=== PATIENT | female | born 1995 | race Caucasian/White ===

== ENCOUNTER → 2016-09-25 | Outpatient (CLI) | payer OTHER ==
[2015-07-28 09:54] VITALS: BP 127/75
--- NOTE | 2016-09-25 10:57 | RAD ---
Right ankle, three views Indication: Right ankle pain x2 weeks. Comparison: None Findings: No cortical lucency or malalignment of the right ankle identified. The joint spaces are no rmally maintained. No significant soft tissue abnormality. Impression: Negative exam. Reported By:
== END ==
LOC: RAD 10:16
PROVIDERS: ATTEND Obstetrics & Gynecology Obstetrics
DX: M25.571 Pain in right ankle and joints of right foot (principal)
CPT/HCPCS: 73610

== ENCOUNTER 2017-04-14 08:23 | Emergency (ER) | payer SELFPAY ==
[2017-04-14 08:27] VITALS: BP 124/80; BMI 30.1
[2017-04-14] MEDS ORDERED: ZOFRAN INJ 4 MG VIAL IVP ONE (09:04)
[2017-04-14] MEDS ORDERED: TORADOL 60 MG VIAL IM ONE (09:04)
--- NOTE | 2017-04-14 09:05 | DR.HEADACH ---
HPI - Time Seen Time seen: 08:45 - Primary Care Physician Primary Care Physician: SEGUNDO - HPI Comment HPI Comment: PATIENT IS HAVING SEVERE HEADACHE WITH NAUSEA AND PHOTOPHOBIA FOR PAST 3 DAYS. WORSE HEADACHE EVER. NON PRESCRIPTION MEDS NOT HELPING HEADACHE. NO URI OR SINUS SYMTOMS. - Complaint/Symptoms Chief Complaint Doctors Comments: HEADACHE TIMES 3 DAYS. Chief Complaint:: PT. C/O HEADACHE SINCE FRIDAY WITH N/V. PT. HAS TAKEN OTC MEDICATIONS WITH NO RELIEF. Pertinent History: Headache, Nausea/Vomitting - Reviewed Nurses Notes Reviewed: Yes - Source History Provided: Patient - Mode of Arrival Mode of Arrival: Ambulatory - Timing Onset of Chief Complaint: 04/11/17 - Duration Since Onset: Constant Duration: Days - Location Headache Location: Generalized - Quality Quality: Throbbing - Severity Headache Severity: Severe - Context Headache Onset Circumstances: Spontaneous History of: None Prior Work Up: None - Modifying Factors Improves With: Nothing Worsens: Light - Associated Signs and Symptoms Associated Symptoms: Nausea, Photophobia Aura: Visual (PHOTOPHOBIA) PMH - PMH Past Medical History: No Past Surgical History: No Surgical History: No History - Family History History of Family Medical Conditions: Yes Family Medical History: Diabetes Mellitus, Cancer - Social History Does patient currently use any type of tobacco product: No Have you used tobacco products in the last 12 months: No Type of Tobacco Use: None Does any household member use tobacco: No Alcohol Use: None Do you use any recreational Drugs:: No Lives With: Spouse Lives Where: Home - infectious screening In the last 2 months have you had wt loss of >10#?: NO Have you had fever, night sweats or hemotysis?: No Have you traveled outside the country in the last 6 months?: No Isolation: Standard ROS - Review of Systems Constitutional: No Symptoms Reported Eyes: Other (PHOTOPHOBIA). negative: Eye Pain, Discharge ENTM: negative: Ear Pain, Nose Discharge, Nose Congestion, Throat Pain Respiratoy: negative: Productive Cough, Non-Productive Cough, Short of Breath, Wheezing, Hemoptysis Cardiovascular: negative: Chest Pain Gastrointestinal/Abdominal: Nausea Genitourinary: No Symptoms Reported Neurological: Headache Musculoskeletal: No Symptoms Reported Integumentary: No Symptoms Reported Hematologic/Lymphatic: No Symptoms Reported Endocrine: No Symptoms Reported All Other Systems: Reviewed and Negative PE - Vital Signs Vitals: Temperature 97.2 F Pulse Rate 68 Respiratory Rate 17 Blood Pressure 124/80 O2 Sat by Pulse Oximetry 99 - General Limitations: No Limitations General Appearance: Alert - Head Head Exam: Normal Inspection - Eyes Eye exam: Normal Appearance Eyelids: Normal Inspection: Bilateral Pupils: Regular, Round: Bilateral, Reactive: Bilateral - ENT ENT Exam: Normal External Ear Exam External Ear Exam: Normal External Inspection TM/Canal Exam: Bilateral Normal Nose Exam: Normal Nose Exam Mouth Exam: Normal Inspection Teeth Exam: Normal Inspection Throat Exam: Normal Inspection - Neck Neck Exam: Trachea Midline. negative: Tenderness, Meningismus, Lymphadenopathy - Chest Chest Inspection: Symmetric Chest Wall Rise - Respiratory Respiratory Exam: Normal Lung Sounds Bilat Respiratory Exam: Bilateral Clear to Auscultation - Cardiovascular Cardiovascular Exam: Regular Rate, Normal Rhythm, Normal Heart Sounds - Abdominal Exam Abdominal Exam: Normal Bowel Sounds, Soft. negative: Tenderness - Extremities Extremities Exam: Normal Inspection - Back Back Exam: Normal Inspection - Neurologic Neurological Exam: Alert, Oriented X3, CN II-XII Intact, Normal Gait, Reflexes Normal. negative: Motor Sensory Deficit - Psychiatric Psychiatric Exam: Normal Affect, Normal Mood - Skin Skin Exam: Normal Color MDM - Differential Diagnosis Differential Diagnosis: Considerations may include:: Migraine, CVA, Sinusitis Course - Treatment Treatment: SEE ORDERS. IM ZOFRAN AND TORADOL IN ED, HEADACHE IMPROVED - Reevaluation 1st: Improved - Education/Counseling Education/Counseling: Patient, Education Educated On: Treatment, Diagnosis, Needs for Follow Up ROR - XRAY XRAY Interpreted by: Radiologist XRAY Findings: REPORT DISCUSS WITH PATIENT. - Diagnosis Discharge Problem: Headache Qualifiers: Headache type: unspecified Headache chronicity pattern: acute headache Intractability: intractable Qualified Code(s): R51 - Headache - Discharge Plan Disposition: 01 HOME, SELF-CARE Condition: Stable Prescriptions: [id number] [Fioricet Tab] 1 tab PO Q8H PRN #20 tab PRN Reason: Migraine Headache Ibuprofen [MOTRIN TAB 600 MG *] 600 mg PO TID PRN #30 tab PRN Reason: Pain/Inflammation Ondansetron HCl [Zofran Tab 4 mg] 4 mg PO Q8H PRN #12 tab PRN Reason: Nausea/Vomiting - Follow ups/Referrals Follow ups/Referrals: RONEN RAYMOND [Primary Care Provider] - 3 days - Instructions Instructions: Headache and Arthritis Additional Instructions: RETURN TO ED IF WORSE.
[2017-04-14] MEDS ORDERED: ZOFRAN INJ 4 MG VIAL IM ONE (09:10)
[2017-04-14] MEDS ORDERED: ZOFRAN INJ 4 MG VIAL ONE (09:19)
[2017-04-14] MEDS ORDERED: TORADOL 60 MG VIAL ONE (09:20)
--- NOTE | 2017-04-14 09:41 | CT ---
HISTORY: Headache Study: CT brain without contrast Comparison: 06/15/2013 Technique: Multiple axial images of the brain were obtained from the skull base to the vertex without administra tion of IV contrast. Coronal and sagittal reformats were performed. Dose reduction procedures were us ed with mA/kv adjusted for body size. Findings: No acute intraparenchymal hemorrhage or mass can be identified. No extra-axial fluid collections are seen. No alteration in the attenuation of the brain parenchyma can be identified to suggest acute o r subacute ischemic change. The ventricular system is symmetric and nondilated. The extracranial st ructures are grossly unremarkable. The calvarium is intact. IMPRESSION: 1. No significant intracranial abnormality identified Reported By:
== END 2017-04-14 09:56 | disposition home or self-care (01) ==
LOC: ER 08:32
DX: R51 Headache (principal)
CPT/HCPCS: 36600; 70450; 96372; 99282; J1885; J2405

== ENCOUNTER 2017-07-13 16:54 | Emergency (ER) | payer SELFPAY ==
[2017-07-13 17:02] VITALS: BMI 30.9
--- NOTE | 2017-07-13 17:50 | DR.GENAD ---
HPI - PCP Primary Care Physician: nfd - Complaint/Symptoms Chief Complaint Doctors Comments: Patient states that she has been having left shoulder pain for several weeks. She admits to neck pain when younger now the pain has radiated to the left shoulder, She reports a history of migraine Chief Complaint:: patient stated she has been having shoulder pain for several years but the last 2 weeks. she stated she has also been having a headache - Source History Provided: Patient - Mode of Arrival Mode of Arrival: Ambulatory - Timing Onset of Chief Complaint: 06/29/17 PMH - PMH Past Medical History: No Past Surgical History: No Surgical History: No History - Family History History of Family Medical Conditions: Yes Family Medical History: Diabetes Mellitus, Cancer - Social History Does patient currently use any type of tobacco product: No Have you used tobacco products in the last 12 months: No Type of Tobacco Use: None Does any household member use tobacco: No Alcohol Use: None Do you use any recreational Drugs:: No Lives With: Family Lives Where: Home - infectious screening In the last 2 months have you had wt loss of >10#?: NO Have you had fever, night sweats or hemotysis?: No Have you traveled outside the country in the last 6 months?: No Isolation: Standard ROS - Review of Systems Eyes: No Symptoms Reported ENTM: No Symptoms Reported Respiratoy: No Symptoms Reported Cardiovascular: No Symptoms Reported Gastrointestinal/Abdominal: No Symptoms Reported Genitourinary: No Symptoms Reported Neurological: No Symptoms Reported Musculoskeletal: No Symptoms Reported Integumentary: No Symptoms Reported Hematologic/Lymphatic: No Symptoms Reported Endocrine: No Symptoms Reported Psychiatric: No Symptoms Reported All Other Systems: Reviewed and Negative PE - Vital Signs Vitals: Temperature 98.7 F Pulse Rate 107 Respiratory Rate 16 Blood Pressure 141/87 O2 Sat by Pulse Oximetry 100 - General Limitations: No Limitations General Appearance: Alert, In No Apparent Distress - Head Head Exam: Normal Inspection, Atraumatic - Eyes Eye exam: Normal Appearance, PERRL, EOMI - ENT ENT Exam: Normal Exam External Ear Exam: Normal External Inspection TM/Canal Exam: Bilateral Normal Nose Exam: Normal Nose Exam Mouth Exam: Normal Inspection Throat Exam: Normal Inspection - Neck Neck Exam: Normal Inspection, Full ROM - Chest Chest Inspection: Normal Inspection - Respiratory Respiratory Exam: Normal Lung Sounds Bilat Respiratory Exam: Bilateral Clear to Auscultation - Cardiovascular Cardiovascular Exam: Regular Rate, Normal Rhythm - Abdominal Exam Abdominal Exam: Normal Inspection, Normal Bowel Sounds Abdominal Tenderness: negative: RUQ, RLQ, LUQ, LLQ, Epigastrium, Suprapubic, Diffuse, Mild, Moderate, Severe, Other - Extremities Extremities Exam: Normal Inspection, Full ROM - Back Back Exam: Normal Inspection, Full ROM - Neurologic Neurological Exam: Alert, Oriented X3, CN II-XII Intact - Psychiatric Psychiatric Exam: Normal Affect, Normal Mood, Depressed - Skin Skin Exam: Warm, Dry, Intact Course - Reevaluation 1st: Unchanged ROR - XRAY XRAY Interpreted by: Radiologist (C spine: No abnormality; Shoulder: negative) - Diagnosis Discharge Problem: Neck pain Shoulder pain Qualifiers: Chronicity: unspecified Laterality: left Qualified Code(s): M25.512 - Pain in left shoulder Headache Qualifiers: Headache type: unspecified Headache chronicity pattern: chronic headache Intractability: not intractable Qualified Code(s): R51 - Headache - Discharge Plan Condition: Stable - Follow ups/Referrals Follow ups/Referrals: NFD,None [Primary Care Provider] - 3 days - Instructions
--- NOTE | 2017-07-13 18:23 | RAD ---
Examination: Cervical spine, three views History: Neck and shoulder pain AP, lateral and open-mouth odontoid views were obtained. The available AP view is nondiagnostic. The open-mouth view demonstrates normal C1-2 anatomy. There is normal alignment of C1-C7. Disc spaces are preserved. No fracture identified. C7-T1 is not demonstrated. Impression: No acute process identified. Incomplete lateral evaluation of the cervicothoracic junctio n. Reported By:
[2017-07-13] MEDS ORDERED: TORADOL 60 MG VIAL IM ONE (19:11)
[2017-07-13] MEDS ORDERED: TORADOL 60 MG VIAL ONE (19:13)
--- NOTE | 2017-07-13 19:35 | RAD ---
CLINICAL HISTORY: Pain COMPARISON: None FINDINGS/IMPRESSION: No evidence of acute fracture or dislocation. Soft tissues are grossly unremarkable. Reported By:
[2017-07-13 19:59] VITALS: BP 111/73
== END 2017-07-13 19:59 | disposition home or self-care (01) ==
LOC: ER 17:11
DX: M25.512 Pain in left shoulder (principal); M54.2 Cervicalgia; R51 Headache
CPT/HCPCS: 72040; 73030; 96372; 99282; 99283; J1885

== ENCOUNTER 2019-06-02 16:48 | Inpatient (IN) ==
[2019-06-02] MEDS ORDERED: NS 1000 ML 1,000 ML IV ONE ×2 (17:26→18:10)
[2019-06-02] MEDS ORDERED: TORADOL 30 MG VIAL IVP ONE (17:28)
[2019-06-02] MEDS ORDERED: ZOFRAN INJ 4 MG VIAL IVP ONE ×2 (17:28→18:05)
[2019-06-02] MEDS ORDERED: ZOFRAN INJ 4 MG VIAL ONE ×2 (17:39→18:16)
[2019-06-02] MEDS ORDERED: TORADOL 30 MG VIAL ONE (17:39)
[2019-06-02] MEDS ORDERED: NS 1000 ML 1,000 ML ONE ×2 (17:39→19:01)
--- NOTE | 2019-06-02 17:50 | ED.ABDFE ---
HPI Time Seen Time Seen by Provider: 06/02/19 17:26 PCP Primary Care Physician: HAMZAH HPI Comment HPI Comment: Pt has had abd pain, N, and V since night the night before last. About 40 hours. Unable to keep hardly even clear liquids down. No diarrhea. Fe karma 100.6 Complaint Doctors Chief Complaint Comments: no prior hx of such. no exposures. has not had similar sx's. Chief Complaint:: PT. C/O NAUSEA/VOMITING AND ABDOMINAL PAIN X 2 DAYS. PT. UNABLE TO KEEP ANYTHING DOWN BUT ICE CHIPS. PT. SAYS HER ABDOMEN IS "ON FIRE." Self Treatment fo Chief Complaint: none Reviewed Nurses Notes Review: Yes Source History Provided: Patient and Significant Other Mode of arrival Mode of Arrival: Ambulatory Timing Onset of Chief Complaint: 05/31/19 Came on: Gradually and At Night Duration Since Onset: Since Onset Duration: Hours (40) Location Location: Epigastric Severity Severity: Severe Quality Quality: Aching and Burning Modifying factors Worsening Factors: Nothing Improving Factors: Nothing Associated signs and symptoms Associated Signs and Symptoms: Nausea and Vomiting; denies Diarrhea, Vaginal Bleeding, Vaginal Discharge, Dysuria and Urgency Other history Other History: pt says she is not . had a normal period a week ago. PMH PMH Past Medical History: No Past Medical History: Anxiety; denies Diabetes and GERD Past Medical History Comment: has had one with twins but had a spontaneous . Past Surgical History: No Surgical History: No History Family History History of Family Medical Conditions: Yes Family Medical History: Diabetes Mellitus and Cancer Social History Does patient currently use any type of tobacco product: Yes Have you used tobacco products in the last 12 months: Yes Type of Tobacco Use: Cigarettes Does any household member use tobacco: Yes Alcohol Use: None Do you use any recreational Drugs:: No Lives With: Spouse Lives Where: Home infectious screening In the last 2 months have you had wt loss of >10#?: NO Have you had fever, night sweats or hemotysis?: Yes Have you traveled outside the country in the last 6 months?: No Isolation: Standard ROS Review of Systems Constitutional: Chills, Fever and Loss of Appetite Eyes: No Symptoms Reported ENTM: No Symptoms Reported Respiratoy: No Symptoms Reported; negative Productive Cough and Short of Breath Cardiovascular: No Symptoms Reported Gastrointestinal/Abdominal: See HPI Genitourinary: No Symptoms Reported; negative Dysuria Neurological: No Symptoms Reported Integumentary: negative Rash Endocrine: Decreased Appetite Psychiatric: No Symptoms Reported All Other Systems: Reviewed and Negative PE Vital Signs Vitals: Temperature 98.3 F Pulse Rate [Apical] 94 Pulse Rate 140 Respiratory Rate 22 Blood Pressure [Right Arm] 110/68 Blood Pressure 116/80 O2 Sat by Pulse Oximetry 98 General Limitations: No Limitations General Appearance: Alert, Anxious and Other (very uncomfortable, nauseated, in pain) Head Head Exam: Normal Inspection Eyes Eye exam: negative Scleral Icterus ENT ENT Exam: Mucous Membranes Dry Neck Neck Exam: Full ROM Respiratory Respiratory Exam: Normal Lung Sounds Bilat Respiratory Exam: Bilateral: Clear to Auscultation Cardiovascular Cardiovascular Exam: Normal Rhythm and Tachycardia; negative Systolic Murmur Abdominal Exam Abdominal Exam: Soft, Tenderness, Guarding and Other (mostly tender epigastrium and RUQ. Lower abd not tender.); negative Rigidity and Mass Abdominal Tenderness: RUQ and Epigastrium Rectal Rectal Exam: Deferred Back Back Exam: Normal Inspection; negative (R) CVA Tenderness and (L) CVA Tenderness External Exam: Female: Deferred : Speculum Exam (Female): Deferred : Bimanual Exam (female): Deferred Neurologic Neurological Exam: Alert and Oriented X3 Psychiatric Psychiatric Exam: Anxious; negative Flat Affect Skin Skin Exam: Warm, Dry, Normal Color and Other (turgor normal) MDM Differential Diagnosis Differential Diagnosis- Considerations may include:: Cholcystitis, Cholelethiasis, Gastritus/PUD and Pancreatitis COURSE Treatment Treatment: Pt very ill on arrival with tachycardia, severe abd pain, dehydration, fever (at home). Given fluids, analgesics, and antiemetics, with some relief. Labs and CT revealed acute pancreatitis with very hi WBC with left shift. Concern for ascending cholangitis, but CT showed only pancreatitis. Case discussed with Dr. Lugo who agreed pt needs admission. ROR Labs Reviewed Laboratory Results Reviewed?: Yes Result Diagrams: 06/02/19 17:46 06/02/19 17:46 Laboratory: WBC 21.8 X10^3/uL (3.6-10.0) H 06/02/19 17:46 RBC 5.53 X10^6/uL (3.5-5.4) H 06/02/19 17:46 Hgb 16.5 g/dL (12.0-16.0) H 06/02/19 17:46 Hct 47.7 % (36.0-47.0) H 06/02/19 17:46 MCV 86.2 fL (80.0-100.0) 06/02/19 17:46 MCH 29.9 pg (27.0-34.0) 06/02/19 17:46 MCHC 34.6 g/dL (33.0-35.0) 06/02/19 17:46 RDW 14.5 % (11.6-16.5) 06/02/19 17:46 Plt Count 204 X10^3/uL (150.0-450.0) 06/02/19 17:46 Plt Count Comment Adequate (ADEQUATE) 06/02/19 17:46 MPV 8.6 fL (7.4-11.0) 06/02/19 17:46 Neut % (Auto) 90.2 % (42.0-75.0) H 06/02/19 17:46 Lymph % (Auto) 4.6 % (21.0-51.0) L 06/02/19 17:46 [place] % (Auto) 4.9 % (0.0-13.0) 06/02/19 17:46 Eos % (Auto) 0.1 % (0.9-2.9) L 06/02/19 17:46 Baso % (Auto) 0.2 % (0.2-1.0) 06/02/19 17:46 Neut # (Auto) 19.6 x10^3/uL (2.2-4.8) H 06/02/19 17:46 Lymph # (Auto) 1.0 X10^3/uL (1.3-2.9) L 06/02/19 17:46 [place] # (Auto) 1.1 x10^3/uL (0.3-0.8) H 06/02/19 17:46 Eos # (Auto) 0.0 x10^3/uL (0.0-0.2) 06/02/19 17:46 Baso # (Auto) 0.1 X10^3/uL (0.0-0.1) 06/02/19 17:46 Absolute Nucleated RBC 0.0 /100WBC 06/02/19 17:46 Total Counted 100 06/02/19 17:46 Neutrophils % (Manual) 91 % (39-76) H 06/02/19 17:46 Band Neutrophils % 3 % (0-10) 06/02/19 17:46 Lymphocytes % (Manual) 4 % (13-43) L 06/02/19 17:46 Monocytes % (Manual) 2 % (4-9) L 06/02/19 17:46 Plt Morphology Comment Normal (NORMAL) 06/02/19 17:46 RBC Morphology Normal (NORMAL) 06/02/19 17:46 Sodium 130 mmol/L (136-145) L 06/02/19 17:46 Corrected Sodium TNP 06/02/19 17:46 Potassium 4.0 mmol/L (3.5-5.1) 06/02/19 17:46 Chloride 94 mmol/L (98-107) L 06/02/19 17:46 Carbon Dioxide 19.8 mmol/L (21-32) L 06/02/19 17:46 BUN 10 mg/dL (7-18) 06/02/19 17:46 Creatinine 0.95 mg/dL (0.55-1.02) 06/02/19 17:46 Est GFR (MDRD) Af Amer > 60 (>60) 06/02/19 17:46 Est GFR (MDRD) Non-Af > 60 (>60) 06/02/19 17:46 Glucose 98 mg/dL (65-99) 06/02/19 17:46 Lactic Acid 0.7 mmol/L (0.4-2.0) 06/02/19 19:11 Calcium 9.5 mg/dL (8.5-10.1) 06/02/19 17:46 Corrected Calcium TNP 06/02/19 17:46 Total Bilirubin 1.40 mg/dL (0.2-1.0) H 06/02/19 17:46 AST 62 Units/L (15-37) H 06/02/19 17:46 ALT 152 Units/L (12-78) H 06/02/19 17:46 Alkaline Phosphatase 259 Units/L (46-116) H 06/02/19 17:46 Lactate Dehydrogenase 274 Units/L (81-234) H 06/02/19 17:46 Total Protein 8.8 g/dL (6.4-8.2) H 06/02/19 17:46 Albumin 3.8 g/dL (3.4-5.0) 06/02/19 17:46 Globulin 5.0 g/dL (2.5-4.5) H 06/02/19 17:46 Albumin/Globulin Ratio 0.8 Ratio (1.1-2.1) L 06/02/19 17:46 Lipase 857 Units/L (73-393) H 06/02/19 17:46 HCG, Qual Negative <10 mIU/mL 06/02/19 17:46 Specimen Type Clean catch urine 06/02/19 17:40 Urine Color Yellow (YELLOW) 06/02/19 17:40 Urine Appearance Hazy (CLEAR) 06/02/19 17:40 Urine pH 6.0 (5.0 - 8.0) 06/02/19 17:40 Ur Specific [place] 1.020 (1.000-1.030) 06/02/19 17:40 Urine Protein 2+ (NEGATIVE) 06/02/19 17:40 Urine Glucose (UA) Negative (NEGATIVE) 06/02/19 17:40 Urine Ketones 4+ (NEGATIVE) 06/02/19 17:40 Urine Occult Blood 2+ (NEGATIVE) 06/02/19 17:40 Urine Nitrite Negative (NEGATIVE) 06/02/19 17:40 Urine Bilirubin Negative (NEGATIVE) 06/02/19 17:40 Urine Urobilinogen 1+ (NORMAL) 06/02/19 17:40 Ur Leukocyte Esterase 1+ (NEGATIVE) 06/02/19 17:40 Urine RBC 5-10 /HPF (0-3) A 06/02/19 17:40 Urine WBC 5-10 /HPF (0-5) A 06/02/19 17:40 Ur Squamous Epith Cells Few /HPF (NEGATIVE) 06/02/19 17:40 Urine Bacteria 2+ /HPF (NEGATIVE) 06/02/19 17:40 Urine Mucus Moderate /HPF (NEGATIVE) 06/02/19 17:40 Ur Culture Indicated? Yes/culture set up 06/02/19 17:40 Other Results Comments: acute pancreatitis, marked dehydration XRAY XRAY Interpreted by: Radiologist XRAY Findings: acute pancreatitis, no evidence of ascending cholangitis Opioid Opioid Risk Tool Total: 0 Total Score Risk Category: Low Risk Copyright: Wilman CUMMINGS predicting aberrant behaviors Diagnosis Discharge Problem: Dehydration, severe Acute pancreatitis Qualifiers: Pancreatitis type: unspecified pancreatitis type Acute pancreatitis complication: no infection or necrosis Qualified Code(s): K85.90 - Acute pancreatitis without necrosis or infection, unspecified Instructions Forms: Excuse From Work
[2019-06-02 17:57] LABS: BASOPHILS # (AUTO) 0.1 X10^3/uL (0.0-0.1); BASOPHILS % (AUTO) 0.2 % (0.2-1.0); EOSINOPHILS % (AUTO) 0.1 % (0.9-2.9); HEMATOCRIT 47.7 % (36.0-47.0); HEMOGLOBIN 16.5 g/dL (12.0-16.0); LYMPHOCYTES % (AUTO) 4.6 % (21.0-51.0); MEAN CORPUSCULAR HEMOGLOBIN 29.9 pg (27.0-34.0); MEAN CORPUSCULAR HGB CONC 34.6 g/dL (33.0-35.0); MEAN CORPUSCULAR VOLUME 86.2 fL (80.0-100.0); MEAN PLATELET VOLUME 8.6 fL (7.4-11.0); MONOCYTES # (AUTO) 1.1 x10^3/uL (0.3-0.8); MONOCYTES % (AUTO) 4.9 % (0.0-13.0); NEUTROPHILS # (AUTO) 19.6 x10^3/uL (2.2-4.8); NEUTROPHILS % (AUTO) 90.2 % (42.0-75.0); PLATELET COUNT 204 X10^3/uL (150.0-450.0); RED BLOOD COUNT 5.53 X10^6/uL (3.5-5.4); RED CELL DISTRIBUTION WIDTH 14.5 % (11.6-16.5); WHITE BLOOD COUNT 21.8 X10^3/uL (3.6-10.0)
[2019-06-02 18:00] LABS: BILIRUBIN,URINE NEGATIVE (NEGATIVE); BLOOD/HEMOGLOBIN,URINE 2+ (NEGATIVE); GLUCOSE, URINE NEGATIVE (NEGATIVE); KETONES,URINE 4+ (NEGATIVE); LEUKOCYTE ESTERASE ,URINE 1+ (NEGATIVE); NITRITES,URINE NEGATIVE (NEGATIVE); PROTEIN,URINE 2+ (NEGATIVE); UROBILINOGEN,URINE 1+ (NORMAL)
[2019-06-02 18:02] LABS: APPEARANCE,URINE HAZY (CLEAR); COLOR,URINE YELLOW (YELLOW)
[2019-06-02 18:12] LABS: SERUM PREGNANCY TEST, QUAL NEGATIVE <10 mIU/mL
[2019-06-02 18:12] LABS: SQUAMOUS EPITHELIAL CELL,UR FEW /HPF (NEGATIVE)
[2019-06-02 18:13] LABS: BACTERIA,URINE 2+ /HPF (NEGATIVE); MUCUS,URINE MODERATE /HPF (NEGATIVE)
[2019-06-02 18:15] LABS: ALANINE AMINOTRANSFERASE 152 Units/L (12-78); ALBUMIN 3.8 g/dL (3.4-5.0); ALKALINE PHOSPHATASE 259 Units/L (46-116); ASPARTATE AMINO TRANSFERASE 62 Units/L (15-37); BLOOD UREA NITROGEN 10 mg/dL (7-18); CALCIUM 9.5 mg/dL (8.5-10.1); CARBON DIOXIDE 19.8 mmol/L (21-32); CHLORIDE 94 mmol/L (98-107); CREATININE 0.95 mg/dL (0.55-1.02); LIPASE 857 Units/L (73-393); SODIUM 130 mmol/L (136-145); TOTAL PROTEIN 8.8 g/dL (6.4-8.2); eGFR NON BLACK RACES > 60 (>60)
[2019-06-02 18:24] LABS: BAND NEUTROPHILS % 3 % (0-10)
[2019-06-02 18:25] LABS: PLATELET MORPHOLOGY COMMENT NORMAL (NORMAL)
[2019-06-02] MEDS ORDERED: DILAUDID INJ IVP PRN (19:18)
[2019-06-02] MEDS ORDERED: DILAUDID INJ ONE (19:34)
--- NOTE | 2019-06-02 19:42 | CT ---
HISTORYSEVERE EPIGASTRIC PAINSTUDYABDOMEN/PELVIS WITH CONCOMPARISONNoneTECHNIQUEMultiple axial images of the abdomen and pelvis were obtained from the lung bases to the pubic symphysis both prior to and after the administration of IV contrast. Dose reduction techniques including Automated Exposure Control (AEC) and adjustment of mA and kV were utilized.FINDINGSAreas of suspected atelectasis and/or scarring are seen within the visualized lungs. The liver, spleen, adrenals, and kidneys are unremarkable in appearance. No CT evidence of hydronephrosis is identified. The pancreas is somewhat edematous in appearance with moderate peripancreatic inflammatory changes in keeping with pancreatitis in the appropriate clinical setting. Evaluation of the stomach, small bowel, and colon is limited without oral contrast. A small amount of fluid is noted within the pelvis. The uterus demonstrates a nonspecific heterogeneous appearance. There is a suspected left ovarian/adnexal cyst which may be further evaluated with outpatient the urinary bladder is not well distended which limits evaluation. Pelvic ultrasound.IMPRESSIONFindings compatible with pancreatitis as discussed above. Correlate clinically.Other findings as discussed above.Electronically signed by: RUI MAS (Jun 02, 2019 19:40:37)
[2019-06-02] MEDS ORDERED: ZOSYN VIAL 3.375 GRAMS 3.375 G in NS 100 ML IV + SPIKE MINIBAG* 100 ML IV ONE (20:05)
[2019-06-02] MEDS: ZOSYN VIAL 3.375 GRAMS 3.375 G in NS 100 ML IV + SPIKE MINIBAG* 100 ML IV SCH ×2 (20:19→22:02)
[2019-06-02] MEDS: NS 1000 ML 1,000 ML IV SCH (22:01)
[2019-06-02] MEDS: ZOFRAN INJ 4 MG VIAL IVP PRN (22:25)
[2019-06-02 23:40] VITALS: BMI 27.6
[2019-06-03] MEDS: NS 1000 ML 1,000 ML IV SCH ×4 (02:12→23:05)
[2019-06-03 05:53] LABS: BASOPHILS # (AUTO) 0.1 X10^3/uL (0.0-0.1); BASOPHILS % (AUTO) 0.4 % (0.2-1.0); EOSINOPHILS # (AUTO) 0.1 x10^3/uL (0.0-0.2); EOSINOPHILS % (AUTO) 0.4 % (0.9-2.9); HEMATOCRIT 35.4 % (36.0-47.0); LYMPHOCYTES # (AUTO) 1.2 X10^3/uL (1.3-2.9); MEAN CORPUSCULAR HGB CONC 34.4 g/dL (33.0-35.0); MEAN CORPUSCULAR VOLUME 87.1 fL (80.0-100.0); MEAN PLATELET VOLUME 9.3 fL (7.4-11.0); MONOCYTES # (AUTO) 0.7 x10^3/uL (0.3-0.8); MONOCYTES % (AUTO) 5.2 % (0.0-13.0); NEUTROPHILS # (AUTO) 11.6 x10^3/uL (2.2-4.8); PLATELET COUNT 121 X10^3/uL (150.0-450.0); RED BLOOD COUNT 4.06 X10^6/uL (3.5-5.4); RED CELL DISTRIBUTION WIDTH 14.2 % (11.6-16.5); WHITE BLOOD COUNT 13.6 X10^3/uL (3.6-10.0)
[2019-06-03 06:00] LABS: HEMOGLOBIN 12.2 g/dL (12.0-16.0)
[2019-06-03] MEDS: ZOSYN VIAL 3.375 GRAMS 3.375 G in NS 100 ML IV + SPIKE MINIBAG* 100 ML IV SCH ×3 (06:02→21:00)
[2019-06-03 06:07] LABS: ALANINE AMINOTRANSFERASE 86 Units/L (12-78); ALBUMIN 2.7 g/dL (3.4-5.0); ALKALINE PHOSPHATASE 162 Units/L (46-116); ASPARTATE AMINO TRANSFERASE 28 Units/L (15-37); BLOOD UREA NITROGEN 8 mg/dL (7-18); CALCIUM 8.2 mg/dL (8.5-10.1); CARBON DIOXIDE 21.3 mmol/L (21-32); CHLORIDE 103 mmol/L (98-107); COR CA(FOR HYPOALB) 9.2 mg/dL (8.5-10.1); CREATININE 0.67 mg/dL (0.55-1.02); SODIUM 135 mmol/L (136-145); TOTAL PROTEIN 6.4 g/dL (6.4-8.2); eGFR NON BLACK RACES > 60 (>60)
[2019-06-03] MEDS: ZOFRAN INJ 4 MG VIAL IVP PRN ×2 (08:33→20:56)
[2019-06-03] MEDS: DILAUDID INJ IVP PRN ×3 (08:33→20:48)
[2019-06-03] MEDS ORDERED: DIFLUCAN PO ONE (13:50)
--- NOTE | 2019-06-03 16:32 | US ---
HISTORYRUQ PAIN, PANCREATITISSTUDYABDOMINAL SONOGRAMCOMPARISONNoneTECHNIQUEMultiple zhang scale and color flow Doppler images of the right upper quadrant were obtained.FINDINGSThe liver is normal size and echogenicity. There is hepatopetal flow in the portal vein and visualized hepatic veins and IVC are unremarkable. There is minimal ascites inferior to the liver. The gallbladder is normal size with small echogenic foci seen in the lumen which are shadowing and mobile. There is minimal wall thickening measuring up to 4 mm with no wall edema or pericholecystic fluid. There is questionable pain upon compression. The common duct measures 4 millimeters. There is questionable enlargement and hypoechogenicity throughout the pancreas with no focal mass or fluid collection. Both kidneys measure 11-12 centimeters in length and are normal in echogenicity with no hydronephrosis or renal stones. The spleen measures 12 cm in length and is normal in echogenicity.IMPRESSIONCholelithiasis with minimal wall thickening and question pain upon compression which could indicate early cholecystitis. Suggest correlating with a HIDA scan, if indicated clinically.Questionable mild pancreatitis with minimal ascites.Normal liver and common bile duct.Electronically signed by: LETY INGRAM (Jun 03, 2019 16:30:52)
[2019-06-04] MEDS: NS 1000 ML 1,000 ML IV SCH ×4 (03:18→16:33)
[2019-06-04] MEDS: ZOFRAN INJ 4 MG VIAL IVP PRN ×5 (03:20→21:53)
[2019-06-04] MEDS: DILAUDID INJ IVP PRN ×5 (03:22→21:53)
[2019-06-04] MEDS: ZOSYN VIAL 3.375 GRAMS 3.375 G in NS 100 ML IV + SPIKE MINIBAG* 100 ML IV SCH ×3 (06:06→21:13)
[2019-06-04 06:28] LABS: BASOPHILS % (AUTO) 0.1 % (0.2-1.0); EOSINOPHILS # (AUTO) 0.1 x10^3/uL (0.0-0.2); HEMATOCRIT 31.5 % (36.0-47.0); HEMOGLOBIN 10.9 g/dL (12.0-16.0); LYMPHOCYTES # (AUTO) 0.7 X10^3/uL (1.3-2.9); LYMPHOCYTES % (AUTO) 7.3 % (21.0-51.0); MEAN CORPUSCULAR HEMOGLOBIN 30.3 pg (27.0-34.0); MEAN CORPUSCULAR HGB CONC 34.5 g/dL (33.0-35.0); MEAN CORPUSCULAR VOLUME 87.8 fL (80.0-100.0); MONOCYTES # (AUTO) 0.4 x10^3/uL (0.3-0.8); MONOCYTES % (AUTO) 4.3 % (0.0-13.0); NEUTROPHILS % (AUTO) 87.3 % (42.0-75.0); PLATELET COUNT 126 X10^3/uL (150.0-450.0); RED BLOOD COUNT 3.59 X10^6/uL (3.5-5.4); RED CELL DISTRIBUTION WIDTH 14.1 % (11.6-16.5); WHITE BLOOD COUNT 9.1 X10^3/uL (3.6-10.0)
[2019-06-04 06:36] LABS: ALANINE AMINOTRANSFERASE 57 Units/L (12-78); ALBUMIN 2.3 g/dL (3.4-5.0); ALKALINE PHOSPHATASE 120 Units/L (46-116); AMYLASE 84 Units/L (25-115); ASPARTATE AMINO TRANSFERASE 21 Units/L (15-37); BLOOD UREA NITROGEN 4 mg/dL (7-18); CALCIUM 7.7 mg/dL (8.5-10.1); CARBON DIOXIDE 19.6 mmol/L (21-32); CHLORIDE 105 mmol/L (98-107); COR CA(FOR HYPOALB) 9.1 mg/dL (8.5-10.1); CREATININE 0.56 mg/dL (0.55-1.02); LIPASE 177 Units/L (73-393); SODIUM 137 mmol/L (136-145); TOTAL PROTEIN 5.8 g/dL (6.4-8.2); eGFR NON BLACK RACES > 60 (>60)
--- NOTE | 2019-06-04 07:43 | US ---
HISTORYLeft ovarian cystSTUDYPELVIC (NON OB)Technique: Multiple grayscale sonographic images were obtained transabdominallyCOMPARISONCT abdomen pelvis same dateFINDINGSThe uterus measured 6.8 x 4.3 x 5.6 cm. Endometrial thickness 9.6 mm which is normal. The right ovary measured 2.8 x 3 x 2.7 cm and appear normal and demonstrated normal blood flow. The left ovary measures 4.8 x 3.3 x 4.8 cm and contained a 2.8 x 2.6 x 2 cm simple cyst. There is normal blood flow to the left ovary. No free fluid is noted in the cul de sac. No adnexal masses are identified.IMPRESSION2.8 x 2.6 x 2.2 cm simple left ovarian cyst corresponding to the CT findingsElectronically signed by: KRYSTA MULLEN (Jun 04, 2019 07:41:21)
[2019-06-04] MEDS ORDERED: TORADOL 30 MG VIAL IVP PRN (09:15)
[2019-06-04] MEDS ORDERED: TYLENOL 500 MG TAB EXTRA STRENGTH PO PRN (09:15)
[2019-06-05] MEDS: NS 1000 ML 1,000 ML IV SCH ×3 (00:23→13:09)
[2019-06-05] MEDS: DILAUDID INJ IVP PRN ×3 (02:15→10:48)
[2019-06-05] MEDS: ZOFRAN INJ 4 MG VIAL IVP PRN ×3 (02:16→10:49)
[2019-06-05] MEDS: ZOSYN VIAL 3.375 GRAMS 3.375 G in NS 100 ML IV + SPIKE MINIBAG* 100 ML IV SCH (05:38)
[2019-06-05 06:54] LABS: BASOPHILS % (AUTO) 0.3 % (0.2-1.0); EOSINOPHILS # (AUTO) 0.1 x10^3/uL (0.0-0.2); EOSINOPHILS % (AUTO) 0.9 % (0.9-2.9); HEMATOCRIT 30.9 % (36.0-47.0); HEMOGLOBIN 10.8 g/dL (12.0-16.0); LYMPHOCYTES # (AUTO) 0.9 X10^3/uL (1.3-2.9); LYMPHOCYTES % (AUTO) 11.5 % (21.0-51.0); MEAN CORPUSCULAR HEMOGLOBIN 30.8 pg (27.0-34.0); MEAN CORPUSCULAR VOLUME 88.1 fL (80.0-100.0); MEAN PLATELET VOLUME 9.2 fL (7.4-11.0); MONOCYTES # (AUTO) 0.5 x10^3/uL (0.3-0.8); NEUTROPHILS # (AUTO) 6.4 x10^3/uL (2.2-4.8); NEUTROPHILS % (AUTO) 81.3 % (42.0-75.0); PLATELET COUNT 134 X10^3/uL (150.0-450.0); RED CELL DISTRIBUTION WIDTH 14.3 % (11.6-16.5); WHITE BLOOD COUNT 7.9 X10^3/uL (3.6-10.0)
[2019-06-05 07:08] LABS: ALANINE AMINOTRANSFERASE 41 Units/L (12-78); ALBUMIN 2.3 g/dL (3.4-5.0); ALKALINE PHOSPHATASE 113 Units/L (46-116); ASPARTATE AMINO TRANSFERASE 20 Units/L (15-37); BLOOD UREA NITROGEN 2 mg/dL (7-18); CARBON DIOXIDE 18.7 mmol/L (21-32); CHLORIDE 105 mmol/L (98-107); COR CA(FOR HYPOALB) 9.4 mg/dL (8.5-10.1); CREATININE 0.49 mg/dL (0.55-1.02); SODIUM 137 mmol/L (136-145); eGFR NON BLACK RACES > 60 (>60)
[2019-06-05] MEDS ORDERED: MAGNESIUM SULFATE 1 GRAM/100 mL PREMIX 1 GM/100 ML BAG IV PRN (08:19)
[2019-06-05] MEDS ORDERED: KLOR-CON PO PRN (08:19)
[2019-06-05] MEDS ORDERED: K-DUR TAB 20 MEQ PO PRN (08:19)
[2019-06-05] MEDS ORDERED: POTASSIUM CHL 40 MEQ/NS 0.45% 500 ML IV PRN (08:19)
[2019-06-05] MEDS ORDERED: MICRO K EXTEN CAP 10 MEQ PO PRN (08:19)
[2019-06-05] MEDS ORDERED: POTASSIUM CHL 60 MEQ/NS 0.45% 500 ML IV PRN (08:19)
[2019-06-05] MEDS ORDERED: POTASSIUM CHLORIDE LIQ 20 MEQ UDC PO PRN (08:19)
[2019-06-05] MEDS ORDERED: K-RIDER 10 MEQ/NS 100 ML 10 MEQ/100 ML BAG IV PRN (08:19)
--- NOTE | 2019-06-05 10:18 | DR.PROGNOT ---
Hospital Progress Notes - Progress Note for Day of: Progress Note Date: 06/05/19 - Chief Complaint Chief Complaint: less abdominal pain . no nausea or vomiting . having abdominal pain after meals . LFT and pancreatic enzymes are normal now . afebrile . - Past Medical Family Social History Past Med/Fam/Surg Hx: No changes since H&P Allergies: Allergies Sulfa (Sulfonamide Antibiotics) [SULFA] Allergy (Verified 06/02/19 17:00) - Review Of Systems ROS: No change since H&P - Vital Signs Vital Signs: Temperature 98.9 F Pulse Rate [Apical] 88 Pulse Rate 85 Respiratory Rate 20 Blood Pressure [Left Arm] 93/57 Blood Pressure [Right Arm] 104/56 Blood Pressure 99/62 O2 Sat by Pulse Oximetry 98 - Physical Exam Oriented: Normal Eyes: Normal Ear: Normal Nose: Normal Throat: Normal Respiratory: Normal Cardiovascular: Normal : Normal GI:Auscultation: Normal GI:Palpation: Normal GI: Tenderness: Epigastric (soft abdomen . moderate epigastric and RUQ tenderness .BS +) Speech Pattern: Clear, Appropriate - Laboratory and Diagnostics Result Diagrams: 06/05/19 06:05 06/05/19 06:05 Labs: 06/02/19 19:17 Blood Blood Culture - Preliminary 06/02/19 19:11 Blood Blood Culture - Preliminary 06/02/19 17:40 Urine,Clean Catch Urine Culture - Final Laboratory WBC 7.9 X10^3/uL (3.6-10.0) 06/05/19 06:05 RBC 3.50 X10^6/uL (3.5-5.4) 06/05/19 06:05 Hgb 10.8 g/dL (12.0-16.0) L 06/05/19 06:05 Hct 30.9 % (36.0-47.0) L 06/05/19 06:05 MCV 88.1 fL (80.0-100.0) 06/05/19 06:05 MCH 30.8 pg (27.0-34.0) 06/05/19 06:05 MCHC 35.0 g/dL (33.0-35.0) 06/05/19 06:05 RDW 14.3 % (11.6-16.5) 06/05/19 06:05 Plt Count 134 X10^3/uL (150.0-450.0) L 06/05/19 06:05 Plt Count Comment Adequate (ADEQUATE) 06/02/19 17:46 MPV 9.2 fL (7.4-11.0) 06/05/19 06:05 Neut % (Auto) 81.3 % (42.0-75.0) H 06/05/19 06:05 Lymph % (Auto) 11.5 % (21.0-51.0) L 06/05/19 06:05 [place] % (Auto) 6.0 % (0.0-13.0) 06/05/19 06:05 Eos % (Auto) 0.9 % (0.9-2.9) 06/05/19 06:05 Baso % (Auto) 0.3 % (0.2-1.0) 06/05/19 06:05 Neut # (Auto) 6.4 x10^3/uL (2.2-4.8) H 06/05/19 06:05 Lymph # (Auto) 0.9 X10^3/uL (1.3-2.9) L 06/05/19 06:05 [place] # (Auto) 0.5 x10^3/uL (0.3-0.8) 06/05/19 06:05 Eos # (Auto) 0.1 x10^3/uL (0.0-0.2) 06/05/19 06:05 Baso # (Auto) 0.0 X10^3/uL (0.0-0.1) 06/05/19 06:05 Absolute Nucleated RBC 0.0 /100WBC 06/05/19 06:05 Total Counted 100 06/02/19 17:46 Neutrophils % (Manual) 91 % (39-76) H 06/02/19 17:46 Band Neutrophils % 3 % (0-10) 06/02/19 17:46 Lymphocytes % (Manual) 4 % (13-43) L 06/02/19 17:46 Monocytes % (Manual) 2 % (4-9) L 06/02/19 17:46 Plt Morphology Comment Normal (NORMAL) 06/02/19 17:46 RBC Morphology Normal (NORMAL) 06/02/19 17:46 Sodium 137 mmol/L (136-145) 06/05/19 06:05 Corrected Sodium TNP 06/05/19 06:05 Potassium 3.3 mmol/L (3.5-5.1) L 06/05/19 06:05 Chloride 105 mmol/L (98-107) 06/05/19 06:05 Carbon Dioxide 18.7 mmol/L (21-32) L 06/05/19 06:05 BUN 2 mg/dL (7-18) L 06/05/19 06:05 Creatinine 0.49 mg/dL (0.55-1.02) L 06/05/19 06:05 Est GFR (MDRD) Af Amer > 60 (>60) 06/05/19 06:05 Est GFR (MDRD) Non-Af > 60 (>60) 06/05/19 06:05 Glucose 74 mg/dL (65-99) 06/05/19 06:05 Lactic Acid 0.7 mmol/L (0.4-2.0) 06/02/19 19:11 Calcium 8.0 mg/dL (8.5-10.1) L 06/05/19 06:05 Corrected Calcium 9.4 mg/dL (8.5-10.1) 06/05/19 06:05 Magnesium 1.4 mg/dL (1.7-2.9) L 06/05/19 06:05 Total Bilirubin 0.50 mg/dL (0.2-1.0) 06/05/19 06:05 AST 20 Units/L (15-37) 06/05/19 06:05 ALT 41 Units/L (12-78) 06/05/19 06:05 Alkaline Phosphatase 113 Units/L (46-116) 06/05/19 06:05 Lactate Dehydrogenase 274 Units/L (81-234) H 06/02/19 17:46 Total Protein 6.0 g/dL (6.4-8.2) L 06/05/19 06:05 Albumin 2.3 g/dL (3.4-5.0) L 06/05/19 06:05 Globulin 3.7 g/dL (2.5-4.5) 06/05/19 06:05 Albumin/Globulin Ratio 0.6 Ratio (1.1-2.1) L 06/05/19 06:05 Amylase 84 Units/L (25-115) 06/04/19 05:40 Lipase 177 Units/L (73-393) 06/04/19 05:40 HCG, Qual Negative <10 mIU/mL 06/02/19 17:46 Specimen Type Clean catch urine 06/02/19 17:40 Urine Color Yellow (YELLOW) 06/02/19 17:40 Urine Appearance Hazy (CLEAR) 06/02/19 17:40 Urine pH 6.0 (5.0 - 8.0) 06/02/19 17:40 Ur Specific [place] 1.020 (1.000-1.030) 06/02/19 17:40 Urine Protein 2+ (NEGATIVE) 06/02/19 17:40 Urine Glucose (UA) Negative (NEGATIVE) 06/02/19 17:40 Urine Ketones 4+ (NEGATIVE) 06/02/19 17:40 Urine Occult Blood 2+ (NEGATIVE) 06/02/19 17:40 Urine Nitrite Negative (NEGATIVE) 06/02/19 17:40 Urine Bilirubin Negative (NEGATIVE) 06/02/19 17:40 Urine Urobilinogen 1+ (NORMAL) 06/02/19 17:40 Ur Leukocyte Esterase 1+ (NEGATIVE) 06/02/19 17:40 Urine RBC 5-10 /HPF (0-3) A 06/02/19 17:40 Urine WBC 5-10 /HPF (0-5) A 06/02/19 17:40 Ur Squamous Epith Cells Few /HPF (NEGATIVE) 06/02/19 17:40 Urine Bacteria 2+ /HPF (NEGATIVE) 06/02/19 17:40 Urine Mucus Moderate /HPF (NEGATIVE) 06/02/19 17:40 Ur Culture Indicated? Yes/culture set up 06/02/19 17:40 - Assessment and Plan 1: subsiding gallstone pancreatitis . will follow next week in the office and plan for out Pt Lap Marguerite . - Problem Patient Problems: Patient Problems Acute pancreatitis (Acute) K85.90 Dehydration, severe (Acute) E86.0
[2019-06-05] MEDS ORDERED: MAG-OX TAB ONE (10:58)
[2019-06-05] MEDS ORDERED: MAG-OX TAB PO ONE (11:02)
[2019-06-05 13:04] VITALS: BP 118/69
[2019-06-05 20:29] LABS: HEPATITIS B SURFACE ANTIGEN Negative (Negative)
== END 2019-06-05 13:48 | disposition home or self-care (01) | DRG 440 ==
LOC: ER 16:56 → MED/SURG 19:55
PROVIDERS: ADMIT Internal Medicine; ATTEND Internal Medicine
DX: R10.13 Epigastric pain; E83.42 Hypomagnesemia; E86.0 Dehydration; F41.8 Other specified anxiety disorders; K85.10 Biliary acute pancreatitis without necrosis or infection
CPT/HCPCS: 36415; 74177; 76700; 76856; 80053; 80074; 81001; 82150; 83605; 83615; 83690; 83735; 84703; 85025; 87040; 87086; 96365; 96367; 96374; 96375; 99284; A4216; A4222; J1170; J1885; J2405; J2543; J3475; J7030; J7050

== ENCOUNTER 2024-10-25 16:59 | Inpatient (IN) ==
[2024-10-25] MEDS ORDERED: PITOCIN IVP ONE (17:42)
[2024-10-25] MEDS ORDERED: NUBAIN INJ 20 MG AMP IVP PRN (17:42)
[2024-10-25] MEDS ORDERED: REGLAN INJ 10 MG VIAL IVP PRN (17:42)
[2024-10-25] MEDS ORDERED: ZOFRAN INJ 4 MG VIAL IVP PRN (17:42)
[2024-10-25] MEDS: LR 1,000 ML IV 1,000 ML IV SCH (17:45)
[2024-10-25] MEDS: OXYTOCIN 20 UNIT/1,000 ML-NS 20 UNIT/1,000 ML PLAST..BAG IV PRN (18:27)
[2024-10-25 18:30] LABS: BLOOD UREA NITROGEN 5 mg/dL (7-18); CALCIUM 8.8 mg/dL (8.5-10.1); CARBON DIOXIDE 22.3 mmol/L (21-32); CHLORIDE 104 mmol/L (98-107); GLUCOSE 82 mg/dL (65-99); POTASSIUM 3.4 mmol/L (3.5-5.1); SODIUM 137 mmol/L (136-145); eGFR NON BLACK RACES > 60 (>60)
[2024-10-25 18:30] LABS: BASOPHILS # (AUTO) 0.1 X10^3/uL (0.0-0.1); BASOPHILS % (AUTO) 0.7 % (0.2-1.0); EOSINOPHILS % (AUTO) 0.4 % (0.9-2.9); HEMATOCRIT 37.1 % (36.0-47.0); HEMOGLOBIN 12.9 g/dL (12.0-16.0); LYMPHOCYTES # (AUTO) 1.2 X10^3/uL (1.3-2.9); LYMPHOCYTES % (AUTO) 11.6 % (21.0-51.0); MEAN CORPUSCULAR HGB CONC 34.7 g/dL (33.0-35.0); MEAN CORPUSCULAR VOLUME 86.4 fL (80.0-100.0); MEAN PLATELET VOLUME 8.2 fL (7.4-11.0); MONOCYTES # (AUTO) 0.6 x10^3/uL (0.3-0.8); MONOCYTES % (AUTO) 5.7 % (0.0-13.0); NEUTROPHILS # (AUTO) 8.1 x10^3/uL (2.2-4.8); NEUTROPHILS % (AUTO) 81.6 % (42.0-75.0); PLATELET COUNT 175 X10^3/uL (150.0-450.0); RED CELL DISTRIBUTION WIDTH 14.1 % (11.6-16.5); WHITE BLOOD COUNT 9.9 X10^3/uL (3.6-10.0)
[2024-10-25] MEDS: D5 1/2 NS 1,000 ML 1,000 ML IV SCH (19:18)
--- NOTE | 2024-10-25 21:28 | US ---
EXAM: OB GREATER THAN 14 WEEKS LIMIT HISTORY: confirm presenting part; COMPARISON: None. TECHNIQUE: Limited obstetrical ultrasound FINDINGS: Single intrauterine gestation in cephalic presentation. The placenta is anterior. heart rate 131 beats per minute. The biparietal diameter is 8.7 cm. The abdominal circumference is 32.4 cm. The estimated weight is 2674 g. The estimated ultrasound age is 35 weeks and 3 days. The estimated ultrasound growth percentile is 55%. IMPRESSION: Limited obstetrical ultrasound demonstrates vertex presentation. THIS IS AN ELECTRONICALLY VERIFIED FINAL REPORT 10/25/2024 9:24 PM - Electronically signed by Marcus Toscano MD
[2024-10-25 22:05] LABS: BILIRUBIN,URINE NEGATIVE (NEGATIVE); BLOOD/HEMOGLOBIN,URINE 3+ (NEGATIVE); GLUCOSE, URINE NEGATIVE (NEGATIVE); KETONES,URINE 3+ (NEGATIVE); LEUKOCYTE ESTERASE ,URINE 1+ (NEGATIVE); NITRITES,URINE NEGATIVE (NEGATIVE); PROTEIN,URINE 1+ (NEGATIVE); UROBILINOGEN,URINE NORMAL (NORMAL)
[2024-10-25 22:08] LABS: APPEARANCE,URINE SLIGHTLY HAZY (CLEAR); COLOR,URINE YELLOW (YELLOW)
[2024-10-25 22:13] LABS: BACTERIA,URINE 1+ /HPF (NEGATIVE); SQUAMOUS EPITHELIAL CELL,UR NUMEROUS /HPF (NEGATIVE)
[2024-10-25] MEDS ORDERED: NS 100 ML IV 100 ML ONE (23:03)
[2024-10-25] MEDS ORDERED: ANCEF VIAL 1 GRAM ONE (23:03)
[2024-10-25] MEDS ORDERED: REGLAN INJ 10 MG VIAL ONE (23:05)
[2024-10-25] MEDS ORDERED: ZOFRAN INJ 4 MG VIAL ONE (23:05)
[2024-10-25] MEDS ORDERED: PRECEDEX INJ VIAL ONE (23:06)
[2024-10-25] MEDS ORDERED: MARCAINE SPINAL ONE (23:06)
[2024-10-25] MEDS ORDERED: DECADRON INJ ONE (23:06)
[2024-10-25] MEDS ORDERED: PEPCID 20 MG VIAL ONE (23:18)
[2024-10-25] MEDS ORDERED: LR 1,000 ML IV 1,000 ML IV ONE (23:18)
[2024-10-25] MEDS ORDERED: XYLOCAINE 2 % (PLAIN) ONE (23:19)
[2024-10-25] MEDS ORDERED: PITOCIN ONE (23:25)
[2024-10-25] MEDS: BICITRA 30 ML PO ONE (23:35)
[2024-10-25] MEDS ORDERED: EPHEDRINE SULFATE INJ ONE (23:50)
[2024-10-25] MEDS ORDERED: OFIRMEV IV 1000 MG VIAL 1,000 MG/100 ML VIAL IV ONE (23:55)
[2024-10-26] MEDS ORDERED: PHENERGAN INJ 25 MG IM ONE (00:07)
[2024-10-26] MEDS ORDERED: TORADOL 30 MG VIAL ONE (00:14)
[2024-10-26] MEDS ORDERED: BENADRYL INJ 50 MG VIAL IVP PRN (00:15)
[2024-10-26] MEDS ORDERED: DILAUDID INJ IVP PRN (00:15)
[2024-10-26] MEDS ORDERED: ZOFRAN INJ 4 MG VIAL IVP PRN ×2 (00:15→00:39)
[2024-10-26] MEDS ORDERED: MYLICON TAB 80 MG CHEW PO PRN (00:39)
[2024-10-26] MEDS ORDERED: MOTRIN TAB 800 MG PO SCH (01:00)
[2024-10-26] MEDS: PERCOCET TAB 5/325 MG PO PRN ×2 (02:34→11:16)
[2024-10-26] MEDS: OXYTOCIN 20 UNIT/1,000 ML-NS 20 UNIT/1,000 ML PLAST..BAG IV SCH (02:35)
[2024-10-26 04:50] LABS: HEMATOCRIT 32.4 % (36.0-47.0); HEMOGLOBIN 11.2 g/dL (12.0-16.0)
[2024-10-26] MEDS: ADACEL or BOOSTRIX TDaP VACCINE IM ONE (05:19)
[2024-10-26] MEDS: PRENATAL PLUS PO SCH (08:05)
[2024-10-26] MEDS: MOTRIN TAB 800 MG PO SCH (08:06)
[2024-10-26 21:32] VITALS: O2SAT 98
[2024-10-27 05:27] VITALS: RESP 18
[2024-10-27 08:23] VITALS: BP 116/65; PULSE 96; TEMP 98.2
== END 2024-10-27 11:15 | disposition home or self-care (01) | DRG 788 ==
LOC: LD 16:59 → MED/SURG 10-26 00:46
PROVIDERS: ADMIT Obstetrics & Gynecology Obstetrics; ATTEND Obstetrics & Gynecology Obstetrics